=== PATIENT | male | born 1965 | race Caucasian/White ===

== ENCOUNTER 2018-09-16 10:32 | Emergency (ER) | payer BC, OTHER ==
[2018-09-16] MEDS ORDERED: Octyl 2-Cyanoacrylate 1 Tube TOP ONE (11:00)
--- NOTE | 2018-09-16 11:00 | EDM.PDOC ---
ED HPI GENERAL MEDICAL PROBLEM - General Chief Complaint: Laceration Stated Complaint: CUT FINGER Time Seen by Provider: 09/16/18 10:51 Source of Information: Reports: Patient History Limitations: Reports: No Limitations - History of Present Illness INITIAL COMMENTS - FREE TEXT/NARRATIVE: History of present illness: []Patient stuck his hand and palate and felt sudden sharp object and jerked his hand back cutting his left index finger in [address]. Patient believes he's had a tetanus shot within the past 5 years and is going to check with his primary care doctor declined when here. Has no other injuries. Review of systems: As per history of present illness and below otherwise all systems reviewed and negative. Past medical history: As per history of present illness and as reviewed below otherwise noncontributory. Surgical history: As per history of present illness and as reviewed below otherwise noncontributory. Social history: No reported history of drug or alcohol abuse. Family history: As per history of present illness and as reviewed below otherwise noncontributory. Physical exam: General: Well developed, well nourished in NAD HEENT: Atraumatic, normocephalic, pupils reactive, negative for conjunctival pallor or scleral icterus, mucous membranes moist, throat clear, neck supple, nontender, trachea midline. Lungs: Clear to auscultation, breath sounds equal bilaterally, chest nontender. Heart: S1S2, regular, negative for clicks, rubs, or JVD. Abdomen: NABS, Soft, nondistended, nontender. Negative for masses or hepatosplenomegaly. Negative for costovertebral tenderness. Pelvis: Stable nontender. Genitourinary: Deferred. Rectal: Deferred. Extremities: Left index finger with superficial cut on the pad of the distal tip , there is also a cyst 1 cm laceration proximal lateral index finger active bleeding, full range of motion, sensation intact, brisk refill. . negative for cords or calf pain. Neurovascular unremarkable. Neuro: Awake, alert, oriented. Cranial nerves II through XII unremarkable. Cerebellum unremarkable. Motor and sensory unremarkable throughout. Exam nonfocal. Skin:warm and dry Diagnostics: None Therapeutics: 2 wounds on left index finger 1sutured, distal wound with Dermabonded ED Course: Stable Impression: Left index finger laceration Prescriptions: Bactrim Plan: Take meds as directed, follow up with your primary care physician, return to ER if symptoms worsen or change. Definitive disposition and diagnosis as appropriate pending reevaluation and review of above. left index finger Pain Score (Numeric/FACES): 4 - Related Data Allergies Allergy/AdvReac Type Severity Reaction Status Date / Time Penicillins Allergy Swelling Verified 09/16/18 10:47 Home Meds: Home Meds Sulfamethoxazole/Trimethoprim [Septra DS] 1 each PO BID #10 tab 09/16/18 [Rx] Past Medical History Cardiovascular History: Reports: High Cholesterol, Hypertension, [place], PTCA Respiratory History: Reports: COPD Other Respiratory History: exposed to grain dust without respirator Gastrointestinal History: Reports: Gastritis, GERD Psychiatric History: Reports: Depression - Infectious Disease History Infectious Disease History: Reports: Chicken Pox - Past Surgical History HEENT Surgical History: Reports: Adenoidectomy, Tonsillectomy GI Surgical History: Reports: Cholecystectomy, Colonoscopy, EGD Neurological Surgical History: Reports: Other (See Below) Social & Family History - Family History Family Medical History: Noncontributory - Tobacco Use Smoking Status *Q: Never Smoker - Caffeine Use Caffeine Use: Reports: Coffee - Recreational Drug Use Recreational Drug Use: Yes Recreational Drug Type: Reports: Marijuana/Hashish ED ROS GENERAL - Review of Systems Review Of Systems: ROS reveals no pertinent complaints other than HPI. ED EXAM, SKIN/RASH Exam: See Below (The history of present illness) ED SKIN PROCEDURES - Laceration/Wound Repair Left index Appearance: Superficial, Subcutaneous Anesthetic Type: Local Local Anesthesia - Lidocaine (Xylocaine): 1% Plain Skin Prep: Saline Closed with: Dermabond (On distal flap wound on the volar pad) Suture Size: other (5-0 nylons on proximal laceration) Drain Placement: No Sterile Dressing Applied: Nurse Tetanus Status Addressed: Yes Complications: No Course - Vital Signs Last Recorded V/S: Last Vital Signs Temp 97.2 F 09/16/18 11:53 Pulse 66 09/16/18 11:53 Resp 16 09/16/18 11:53 BP 110/70 09/16/18 11:53 Pulse Ox 95 09/16/18 11:53 - Orders/Labs/Meds Meds: Medications Discontinued Medications Generic Name Dose Route Start Last Admin Trade Name Freq PRN Reason Stop Dose Admin Lidocaine HCl 5 ml 09/16/18 11:00 09/16/18 11:03 Xylocaine-Mpf 1% INJECT 09/16/18 11:01 5 ml ONETIME ONE Administration Octyl Cyanoacrylate 1 applic 09/16/18 11:00 09/16/18 11:03 Dermabond Advance TOP 09/16/18 11:01 1 applic ONETIME ONE Administration Departure - Departure Time of Disposition: 11:34 Disposition: Home, Self-Care 01 Condition: Good Clinical Impression: Laceration of left index finger Qualifiers: Encounter type: initial encounter Damage to nail status: without damage Foreign body presence: without foreign body Qualified Code(s): S61.211A - Laceration without foreign body of left index finger without damage to nail, initial encounter - Discharge Information *PRESCRIPTION DRUG MONITORING PROGRAM REVIEWED*: No *COPY OF PRESCRIPTION DRUG MONITORING REPORT IN PATIENT CARSON: No Prescriptions: Sulfamethoxazole/Trimethoprim [Septra DS] 1 each PO BID #10 tab Instructions: Laceration Care, Adult Referrals: PCP,Unknown [Primary Care Provider] - Forms: ED Department Discharge Additional Instructions: The following information is given to patients seen in the emergency department who are being discharged to home. This information is to outline your options for follow-up care. We provide all patients seen in our emergency department with a follow-up referral. The need for follow-up, as well as the timing and circumstances, are variable depending upon the specifics of your emergency department visit. If you don't have a primary care physician on staff, we will provide you with a referral. We always advise you to contact your personal physician following an emergency department visit to inform them of the circumstance of the visit and for follow-up with them and/or the need for any referrals to a consulting specialist. The emergency department will also refer you to a specialist when appropriate. This referral assures that you have the opportunity for follow-up care with a specialist. All of these measure are taken in an effort to provide you with optimal care, which includes your follow-up. Under all circumstances we always encourage you to contact your private physician who remains a resource for coordinating your care. When calling for follow-up care, please make the office aware that this follow-up is from your recent emergency room visit. If for any reason you are refused follow-up, please contact the [facility] Emergency Department at and asked to speak to the emergency department charge nurse. Sutures out in 7-10 days Take meds as directed, follow up with your primary care physician, return to ER if symptoms worsen or change. [facility] [address] [place] [id number]
[2018-09-16 11:53] VITALS: BP 110/70
== END 2018-09-16 12:04 | disposition home or self-care (01) ==
LOC: MW.ED 10:32
DX: S61.211A Laceration without foreign body of left index finger without damage to nail, initial encounter (principal); I10 Essential (primary) hypertension; I25.2 Old myocardial infarction; Z88.0 Allergy status to penicillin; W26.8XXA Contact with other sharp object(s), not elsewhere classified, initial encounter
CPT/HCPCS: 12001; 99282; A9270; J2001